=== PATIENT | male | born 1955 ===

== ENCOUNTER 2018-08-16 00:43 | Inpatient (IN) | payer OTHER ==
[2018-08-15 13:50] LABS: INR 0.97
[2018-08-16] VITALS (12 sets, daily range): BP systolic 125–157; BP diastolic 70–88
[~2018-08-16] VITALS: Ht 177.8 cm; Wt 93.9 kg
[~2018-08-16 00:43] MED LIST: DICL-195 PO; ESOM40CA42 PO; FLUT16SP19 NS; IBUP200C74 PO; TAMS0.4C70 PO
[2018-08-16] MEDS ORDERED: fentaNYL CITR 100 MCG/2 ML AMP ONE (10:22)
[2018-08-16] MEDS ORDERED: PROPOFOL EMUL(*) 10MG/ML 20 ML 20 ML ONE (10:23)
[2018-08-16] MEDS ORDERED: ONDANSETRON 4 MG/2 ML VIAL ONE (10:23)
[2018-08-16] MEDS ORDERED: LIDOCAINE MPF 1% 5 ML VIAL ONE (10:23)
[2018-08-16] MEDS ORDERED: DEXAMETHASONE SOD PHOS 10MG/ML ONE (10:23)
[2018-08-16] MEDS ORDERED: KETAMINE HCL 200 MG/20 ML MDV ONE (10:26)
[2018-08-16] MEDS ORDERED: LIDOCAINE/SOD BICARB 8.4% SYR ID ONE (11:15)
[2018-08-16] MEDS ORDERED: ACETAMINOPHEN 500 MG TAB PO ONE (11:15)
[2018-08-16] MEDS ORDERED: MIDAZOLAM 2 MG/2 ML VIAL IVP PRN (11:15)
[2018-08-16] MEDS ORDERED: CELECOXIB 200 MG CAP PO ONE (11:15)
[2018-08-16] MEDS ORDERED: CLINDAMYCIN 900 MG/D5W 50 ML 50 ML IVPB ONE (11:15)
[2018-08-16] MEDS ORDERED: cloNIDine EPIDUR INJ 100MCG/ML 40 MCG, ROPIVACAINE 0.5% 20 ML VIAL 25 ML, EPINEPHrine H... INJ ONE (11:15)
[2018-08-16] MEDS ORDERED: PREGABALIN 150 MG CAPSULE PO ONE (11:15)
[2018-08-16] MEDS ORDERED: NORMOSOL R SOLN(*) 1000 ML BAG 1,000 ML IV PRN ×3 (11:15→14:50)
[2018-08-16] MEDS ORDERED: TRANEXAMIC AC 1000 MG/10ML SDV 1,000 MG in DEXTROSE 5% 50 ML BAG 50 ML IV ONE (11:15)
[2018-08-16] MEDS ORDERED: LIDOCAINE 2% JELLY 5 ML TUBE ONE (12:17)
--- NOTE | 2018-08-16 13:10 | LEVENE H&P ---
DATE OF ADMISSION: August 16, 2018 IDENTIFICATION/CHIEF COMPLAINT The patient is a 62-year-old gentleman with a chief complaint of left knee pain. HISTORY OF PRESENT ILLNESS Patient has a longstanding history of left knee arthritis progressively painful and debilitating and refractory to conservative care. Surgery is indicated to relieve symptoms after failure of nonoperative measures. PAST MEDICAL HISTORY 1. Kidney stones. 2. Mathis's esophagus with acid reflux disease. 3. Enlarged prostate. PAST SURGICAL HISTORY Colonoscopy x3. ALLERGIES PENICILLIN, which is a childhood allergy. The specific nature of his reaction is unknown. CURRENT MEDICATIONS 1. Tamsulosin 0.4 mg p.o. every day. 2. Nexium 40 mg every day. 3. Diclofenac 75 b.i.d. p.o. SOCIAL HISTORY Negative for alcohol and tobacco use. FAMILY HISTORY Notable for two brothers with osteoarthritis, mother with esophageal cancer. REVIEW OF SYSTEMS Negative. PHYSICAL EXAMINATION GENERAL: This is a well-developed, well-nourished male who appears stated age. HEENT: Normocephalic, atraumatic. NECK: Supple. LUNGS: Clear. HEART: Regular ABDOMEN: Soft. ORTHOPEDIC EXAMINATION Left knee is stiff on range of motion. Effusion is present. Crepitus is noted. Extensor function is intact. Gross stability is good. Calves are nontender. Neurovascular function is intact. Radiographs demonstrate end-stage DJD. 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 PLAN Per patient's request, we are going to proceed with total knee arthroplasty. The nature of the procedure, the risks, benefits, the anticipated rehabilitative course were reviewed. Risks of the procedure include but are not limited to , major medical or anesthetic complication, infection, neurovascular injury, blood transfusion, stiffness, scarring, fracture, tendon rupture, instability, implant loosening, migration or failure, persistent or recurrent pain, need for additional surgery and other unforeseen. He understands and wishes to proceed. A signed permit is placed in the chart. No guarantees are given or implied. [facility]
[2018-08-16] MEDS ORDERED: diphenhydrAMINE 25 MG CAP PO PRN (14:45)
[2018-08-16] MEDS ORDERED: diphenhydrAMINE 50 MG/ML VIAL IVP PRN (14:45)
[2018-08-16] MEDS ORDERED: ACETAMINOPHEN 325 MG TAB PO PRN (14:45)
[2018-08-16] MEDS ORDERED: BISACODYL 10 MG SUPP PR PRN (14:45)
[2018-08-16] MEDS ORDERED: BENZOCAINE/MENTHOL 1 EACH LOZG PO PRN (14:45)
[2018-08-16] MEDS ORDERED: ZOLPIDEM TARTRATE 5 MG TAB PO PRN (14:45)
[2018-08-16] MEDS ORDERED: FLUSH 10 ML SYR IVP PRN (14:45)
[2018-08-16] MEDS ORDERED: PROMETHAZINE 25 MG/ML 1 ML AMP IVP PRN (14:45)
--- NOTE | 2018-08-16 15:04 | RADIOLOGY IMAGING REPORT ---
FACILITY: [facility] PATIENT NAME: Dereck Atkinson : 1955 MR: [id number] V: [id number] EXAM DATE: ORDERING PHYSICIAN: MICHEAL ARREOLA TECHNOLOGIST: Location: [facility] [place] Patient: Dereck Atkinson : 1955 Visit/Account:[id number] Date of Sevice: 08/16/2018 Exam type: KNEE LIMITED LEFT History: POST OP L TOTAL KNEE Comparison: September 29, 2017. Findings: AP and lateral views left knee demonstrate a left knee arthroplasty in good anatomic alignment. Soft tissue gas and skin franchesca project over the anterior aspect of the left knee IMPRESSION: 1. Left knee arthroplasty appears in good anatomic alignment Report Dictated By: Karin Reinoso MD at 08/16/2018 2:58 PM Report E-Signed By: Karin Reinoso MD at 08/16/2018 2:59 PM WSN:[id number]
[2018-08-16] MEDS ORDERED: PSEU1TAB PO (15:37)
[2018-08-16] MEDS: CELECOXIB 200 MG CAP PO SCH (16:24)
--- NOTE | 2018-08-16 16:29 | Hospitalist Consultation ---
History of Present Illness Requesting Physician Dr. Blackmon Reason for Consult Medical Management Chief Complaint s/p left knee replacement History of Present Illness He was admitted s/p left knee replacement. It is reported the surgery went well and without complication. History Problems: (1) Mathis esophagus Status: Chronic (2) Enlarged prostate Status: Chronic Home Meds Reported Medications Pseudoephed/Chlorpheniramine (SUDOGEST SINUS & ALLERGY TAB) 1 Each Tablet, 1 EACH PO PRN 08/16/18 Ibuprofen (ADVIL) 200 Mg Capsule, 1-2 CAP PO Q6-8H PRN for PAIN, CAPSULE 08/10/18 Fluticasone Prop 50 Mcg Ns (FLONASE 50 MCG NS) 16 Gm [place].susp, 1 SPRAY NS DAILY, BOT 08/10/18 Diclofenac Sodium (DICLOFENAC SODIUM) 75 Mg Tablet.dr, 75 MG PO DAILY, TAB 08/10/18 Esomeprazole Magnesium (NEXIUM) 40 Mg Capsule.dr, 1 CAP PO QDAY, CAP 08/10/18 Tamsulosin Hcl (TAMSULOSIN HCL) 0.4 Mg Cap.er.24h, 0.4 MG PO DAILY, CAP 08/10/18 Allergies: Coded Allergies: Penicillins (Verified Allergy, Unknown, 08/10/18) Patient History: Aortic valve disorder FATHER, FH: diabetes mellitus FATHER, FH: esophageal cancer MOTHER, Osteoarthritis BROTHER OR SISTER BROTHER OR SISTER Hx Smoking: No Smoking Status: Never Smoker Caffeine Intake: Soda Caffeine/Cups Per Day: OCC PEPSI Hx Alcohol Use: No Hx Substance Use Disorder: No Social Drug Use: Never History of IV Drug Use: No Review of Systems All Systems Reviewed/Normal: Yes, Except as Noted Exam Vital Signs Vital Signs Date Time Temp Pulse Resp B/P (MAP) Pulse Ox O2 Delivery O2 Flow Rate FiO2 08/16/18 15:45 97.5 74 18 135/73 (93) 91 Nasal Cannula 2.0 General Appearance: Alert, Awake, No Acute Distress, Afebrile Neuro: No Gross deficits Cardiovascular: Regular Rate and Rhythm Respiratory: No Respiratory Distress, Clear to Auscultation Extremities: Warm, Perfused; No Edema Psych: Alert & Oriented X3, Appropriate Mood & Affect Assessment and Plan Problems: (1) Status post left knee replacement Status: Acute Assessment & Plan: He will be placed on Aspirin for DVT prophylaxis. (2) Enlarged prostate Status: Chronic Assessment & Plan: He is on chronic treatment with Flomax. This will be restarted tonight. (3) Mathis esophagus Status: Chronic Assessment & Plan: He is on chronic treatment with Nexium. He will be placed on Protonix throughout admission. Venous Thromboembolism Antithrombotics Is Pt On Any Antithrombotics?: No Exam Sepsis Risk: No Definite Risk ABNER CORBETT NUCLEAR MEDICINE MEDICAL DIRECTOR Aug 16, 2018 16:29
[2018-08-16] MEDS: APAP/HYDROCODONE 325/7.5 TAB PO PRN ×3 (17:14→23:04)
[2018-08-16] MEDS: CLINDAMYCIN(*) 900 MG/NS 50 ML 50 ML IVPB SCH (19:47)
--- NOTE | 2018-08-16 20:48 | OPERATIVE REPORT 1 ---
EVENT DATE: August 16, 2018 SURGEON: Rio Blackmon MD ANESTHESIOLOGIST: Vance Antonio MD ANESTHESIA: General plus spinal. WORSHIP PASTOR: DANIELE Diane PREOPERATIVE DIAGNOSIS Left knee degenerative joint disease. POSTOPERATIVE DIAGNOSIS Left knee degenerative joint disease. PROCEDURE PERFORMED Left total knee arthroplasty. ESTIMATED BLOOD LOSS Minimal. DRAINS None. SPECIMENS None. COMPLICATIONS None apparent. TOURNIQUET TIME 45 minutes IMPLANTS USED Alberto Triathlon knee system, a 5 PS femur, a 5 standard tibial baseplate, 33 mm universal, symmetric, all-polyethylene patellar button, and an 11 mm PS tibial tray liner. Polyethylene is X3. INDICATIONS Dereck is a 63-year-old gentleman with intractable pain and disability related to end-stage knee arthritis. Surgery is indicated to relieve symptoms after failure of nonoperative measures. DESCRIPTION OF PROCEDURE Patient taken to the operating room and placed supine on the operating table. Spinal block was administered by the anesthesiologist. General anesthesia was induced. Antibiotics and TXA were administered IV. Left lower extremity was prepped and draped in the usual sterile fashion for knee arthroplasty. Limb was exsanguinated with an Esmarch bandage. Tourniquet inflated to 275 mmHg. Midline longitudinal incision made, carried down through the skin and subcutaneous tissue to the extensor mechanism. Full-thickness flaps were developed far enough medially to allow medial parapatellar arthrotomy be performed. Patella was everted. Knee was brought into the flexed position. Fat pad, anterior horns of the menisci, and the cruciate ligaments are debrided. A gentle subperiosteal medial release is initiated in a titrated fashion to start to balance the deformity of the knee. A step drill is used to enter the distal femur. A 10-inch long alignment guide is used to engage the isthmus, cut set for 5 degrees of valgus relative to the anatomic axis. The 10 mm resection block is applied, pinned, and cuts made with an oscillating saw. AP sizing guide is applied to the distal femoral cut, positioned for 3 degrees of external rotation relative to the posterior condyles. Size 5 is optimal without risk of notching. The four-in-one cutting block is applied. Anterior, posterior, posterior chamfer, and anterior chamfer cuts are made respectively. PS block is applied and centered. Medial and lateral bone is removed through the box. Trial femur has nice [id number] fit. Attention is turned to tibial preparation. The extramedullary guide is positioned for varus, valgus, posterior slope, and rotation. This is set to resect 9 from the relatively intact lateral tibial plateau. It is dropped down a millimeter or two to ensure an adequate cut. Block is pinned. Extramedullary alignment check is made. Cuts made with an oscillating saw. Gaps are balanced and symmetric after posterior bone removal and osteophyte removal with no additional releases required. The size 5 tibial baseplate provides optimum bony coverage without soft tissue overhang. This is inserted along with trial liner and trial femur. Knee is brought to full extension. Patella is taken from the starting thickness of 23 to a residual of 14 with a patellar clamp and oscillating saw. The 33 provides optimum bony coverage without soft tissue overhang. Lug holes are drilled. Patella tracks nicely with the no-touch technique. Final tibial preparation consists of assuring appropriate rotational and translational positioning of the component. The boss is reamed. The fin is punched. Surfaces are lavaged. Meticulous hemostasis is assured. Components are cemented in a single stage. Once the cement is fully polymerized, tourniquet is deflated. Hemostasis is assured. The 11 PS tibial tray trial fills up the gap ideally, allowing the knee to drop to full extension without hyperextension, providing optimal soft tissue tension and stability. The tray is lavaged and dried, and the actual liner is locked into the baseplate. Joint is reduced. Arthrotomy is closed in flexion with #2 Ethibond, subcutaneous tissue with 3-0 Vicryl, skin with surgical franchesca. Xeroform and 4 x 4's applied as a dry, sterile dressing and compression wrap. The patient was awakened from anesthesia and taken to the recovery room in stable condition having tolerated the procedure well. Plan is for standard TKA rehab protocol. [facility]
[2018-08-16] MEDS: TAMSULOSIN HCL 0.4 MG CAP PO SCH (21:31)
[2018-08-17] MEDS: DIAZEPAM 5 MG TAB PO PRN (02:00)
[2018-08-17 03:47] VITALS: BP 136/79
[2018-08-17] MEDS: CLINDAMYCIN(*) 900 MG/NS 50 ML 50 ML IVPB SCH ×2 (03:55→11:26)
[2018-08-17] MEDS: APAP/HYDROCODONE 325/7.5 TAB PO PRN ×5 (04:02→22:00)
[2018-08-17 07:24] VITALS: BP 121/73
[2018-08-17] MEDS: CELECOXIB 200 MG CAP PO SCH ×2 (08:23→16:42)
[2018-08-17] MEDS: ASPIRIN 325 MG TAB PO SCH (08:23)
[2018-08-17] MEDS: PANTOPRAZOLE SOD 40 MG TABEC PO SCH (08:23)
[2018-08-17] MEDS: MAGNESIUM HYDROXIDE* 30ML UDCP PO PRN (08:23)
[2018-08-17] MEDS: FLUTICASONE PROP 0.05% 16 GM SCH (08:24)
[2018-08-17] MEDS ORDERED: TAMSULOSIN HCL 0.4 MG CAP PO SCH (09:00)
[2018-08-17] MEDS: DOCUSATE SODIUM 100 MG CAP PO SCH ×2 (09:10→20:53)
[2018-08-17 10:14] VITALS: Ht 177.8 cm; Wt 93.9 kg
--- NOTE | 2018-08-17 10:48 | Hospitalist Progress Note ---
Subjective Progress Notes Subjective He has no complaints this morning. He had no acute events overnight. Patient Complains of: Cardiovascular: No: Chest Pain Respiratory: No: Shortness of Breath Physical Exam Vital Signs Date Time Temp Pulse Resp B/P (MAP) Pulse Ox O2 Delivery O2 Flow Rate FiO2 08/17/18 07:27 82 08/17/18 07:25 Room Air 08/17/18 07:24 98.4 79 16 121/73 (89) 1.0 Intake and Output 08/17/18 01:00 Intake Total 4310 ml Output Total 120 ml Balance 4190 ml Intake Oral 760 ml IV Total 2050 ml Other 1500 ml Output Urine Total 100 ml Estimated Blood Loss 20 ml # Voids 1 General Appearance: Alert, Awake, No Acute Distress, Afebrile Neuro: No Gross deficits Cardiovascular: Regular Rate and Rhythm Respiratory: No Respiratory Distress, Clear to Auscultation GI: Soft and Non-Tender Extremities: Warm, Perfused; No Edema Psych: Alert & Oriented X3, Appropriate Mood & Affect Assessment and Plan Problems: (1) Status post left knee replacement Status: Acute Assessment & Plan: He will be placed on Aspirin for DVT prophylaxis. (2) Enlarged prostate Status: Chronic Assessment & Plan: He is on chronic treatment with Flomax. (3) Mathis esophagus Status: Chronic Assessment & Plan: He is on chronic treatment with Nexium. He will be placed on Protonix throughout admission. Exam Sepsis Risk: No Definite Risk ABNER CORBETT DIRECTOR FOOD AND BEVERAGE Aug 17, 2018 10:48
[2018-08-17 13:58] VITALS: BP 132/67
[2018-08-17 19:31] VITALS: BP 140/69
[2018-08-17] MEDS: TAMSULOSIN HCL 0.4 MG CAP PO SCH (20:53)
[2018-08-18] MEDS: DIAZEPAM 5 MG TAB PO PRN ×2 (00:54→07:49)
[2018-08-18 00:58] VITALS: BP 142/68
[2018-08-18] MEDS: APAP/HYDROCODONE 325/7.5 TAB PO PRN ×3 (04:01→12:43)
[2018-08-18 04:02] VITALS: BP 153/85
[2018-08-18 07:04] VITALS: BP 134/82
[2018-08-18] MEDS: CELECOXIB 200 MG CAP PO SCH (07:49)
[2018-08-18] MEDS: ASPIRIN 325 MG TAB PO SCH (08:20)
[2018-08-18] MEDS ORDERED: HYDR-4308 PO (08:20)
[2018-08-18] MEDS: PANTOPRAZOLE SOD 40 MG TABEC PO SCH (08:20)
[2018-08-18] MEDS: FLUTICASONE PROP 0.05% 16 GM SCH (08:20)
[2018-08-18] MEDS: MAGNESIUM HYDROXIDE* 30ML UDCP PO PRN (08:20)
[2018-08-18] MEDS: DOCUSATE SODIUM 100 MG CAP PO SCH (08:20)
[2018-08-18] MEDS ORDERED: DIA5 PO (08:22)
[2018-08-18] MEDS ORDERED: ASPI-757 PO (09:16)
--- NOTE | 2018-08-18 09:18 | Hospitalist Progress Note ---
Subjective Progress Notes Subjective He has no complaints this morning. He had no acute events overnight. Patient Complains of: Cardiovascular: No: Chest Pain Respiratory: No: Shortness of Breath Physical Exam Vital Signs Date Time Temp Pulse Resp B/P (MAP) Pulse Ox O2 Delivery O2 Flow Rate FiO2 08/18/18 08:47 82 08/18/18 07:54 Nasal Cannula 1.0 08/18/18 07:04 98.0 73 20 134/82 (99) Intake and Output 08/18/18 07:00 Intake Total 392 ml Balance 392 ml Intake Oral 342 ml IV Total 50 ml General Appearance: Alert, Awake, No Acute Distress, Afebrile Neuro: No Gross deficits Cardiovascular: Regular Rate and Rhythm Respiratory: No Respiratory Distress, Clear to Auscultation GI: Soft and Non-Tender, Other (abdomen distended) Extremities: Warm, Perfused; No Edema Psych: Alert & Oriented X3, Appropriate Mood & Affect Assessment and Plan Problems: (1) Status post left knee replacement Status: Acute Assessment & Plan: He will be placed on Aspirin for DVT prophylaxis. He has not had bowel movement yet. He will take Miralax if needed at home. (2) Enlarged prostate Status: Chronic Assessment & Plan: He is on chronic treatment with Flomax. (3) Mathis esophagus Status: Chronic Assessment & Plan: He is on chronic treatment with Nexium. He will be placed on Protonix throughout admission. Exam Sepsis Risk: No Definite Risk ABNER CORBETT DOG AND CAT FOOD COOK Aug 18, 2018 09:18
[2018-08-18 11:36] VITALS: BP 131/73
== END 2018-08-18 13:10 | disposition home or self-care (01) | DRG 470 ==
LOC: OR 00:43 → MED 15:32
PROVIDERS: ADMIT Orthopaedic Surgery; ATTEND Orthopaedic Surgery
PROC: 0SRD0J9 Replacement of Left Knee Joint with Synthetic Substitute, Cemented, Open Approach (ICD-10-PCS; principal; 2018-08-16 12:32)
DX: M17.12 Unilateral primary osteoarthritis, left knee (principal); K22.70 Barrett's esophagus without dysplasia; N40.0 Benign prostatic hyperplasia without lower urinary tract symptoms; E78.5 Hyperlipidemia, unspecified; Z88.0 Allergy status to penicillin
CPT/HCPCS: 36415; 85610; 86850; 86900; 86901; 97161; C1713; C1776; J0171; J0735; J1100; J1885; J2001; J2250; J2405; J2550; J2704; J2795; J3010; J3490; J7050; J7060